=== PATIENT | female | born 1985 | race African-American/Black ===

== ENCOUNTER 2018-05-07 19:36 | Inpatient (IN) ==
[2018-05-07] MEDS: LACTATED RINGERS 1,000 ML IV SCH (20:15)
[2018-05-07] MEDS: MEPERIDINE 50 MG/1 ML VIAL IV PRN (20:20)
[2018-05-07] MEDS: TERBUTALINE 1 MG/1 ML VIAL SUBCUT PRN (21:11)
[2018-05-07] MEDS: BETAMETH SODIUM PHOS/ACETATE 30 MG/5 ML VIAL IM SCH (21:12)
[2018-05-08] MEDS: MEPERIDINE 50 MG/1 ML VIAL IV PRN (08:16)
[2018-05-08] MEDS: ONDANSETRON 4 MG/2 ML VIAL IV PRN (08:22)
[2018-05-08 08:53] LABS: Basophils % 0.1 % (0.0-0.8); Hematocrit 33.2 VOL% (35.7-47.0); Hemoglobin 10.9 GM/DL (12.0-16.0); Immature Granulocytes % 0.5 %; Immature Granulocytes Absolute 0.04 #; Lymphocytes % 11.7 % (21.3-54.2); Mean Corpuscular HGB Conc 32.8 GM/DL (32-36); Mean Corpuscular Hemoglobin 28 PG (27-34); Mean Corpuscular Volume 85.8 FL (87-102); Mean Platelet Volume 9.9 FL (9.6-12.0); Monocytes # 0.3 10*3/uL (0.11-0.8); Monocytes % 3.8 % (1.7-12.7); Neutrophils % 83.9 % (38.7-73.9); Platelet Count 377 T/CUMM (130-400); Red Blood Count 3.87 MC/CUMM (3.8-5.5); Red Cell Distribution Width 13.1 % (9.3-17.3); White Blood Count 8.3 T/CUMM (4-12)
[2018-05-08] MEDS: BETAMETH SODIUM PHOS/ACETATE 30 MG/5 ML VIAL IM SCH (09:15)
[2018-05-08 09:23] LABS: Alanine Aminotransferase 10 U/L (13-56); Albumin 2.5 G/DL (3.4-5.0); Alkaline Phosphatase 150 U/L (45-117); Aspartate Amino Transferase 8 U/L (0-37); Bilirubin,Total < 0.39 MG/DL (0.2-1.0); Blood Urea Nitrogen 6 MG/DL (7-18); Calcium 8.4 MG/DL (8.5-10.1); Glucose 105 MG/DL (74-106); Osmolality,Calculated 270.8 MOS/KG (273-304); Potassium 4.1 MMOL/L (3.5-5.1); Sodium 137 MMOL/L (136-145); Total Protein 6.8 G/DL (6.4-8.3)
[2018-05-08 10:05] LABS: Apearance,Urine CLEAR (Clear); Bacteria,Urine Occasional /HPF (Few); Bilirubin,Urine Negative (Negative); Blood, Urine Negative (Negative); Glucose,Urine (UA) Negative (Negative); Ketones,Urine 20 mg/dL (Negative); Mucus,Urine Occasional /LPF (Occasional); Nitrite,Urine Negative (Negative); Protein,Urine Negative; RBC,Urine <1 /HPF (0-4); Squamous Epithelial Cell,Urine Occasional /HPF (0-10); Urine Color Straw (Yellow); Urine Specific Gravity 1.011 (1.001-1.035); Urine Urobilinogen < 2.0 EU/DL (0.2-1.0)
[2018-05-08] MEDS: TERBUTALINE 1 MG/1 ML VIAL SUBCUT PRN (10:32)
[2018-05-08] MEDS: LACTATED RINGERS 1,000 ML IV SCH ×2 (11:18→16:11)
[2018-05-08] MEDS: NIFEdipine 10 MG CAPSULE PO SCH ×2 (13:12→18:08)
[2018-05-09] MEDS: NIFEdipine 10 MG CAPSULE PO SCH ×5 (01:00→23:18)
[2018-05-09] MEDS: LACTATED RINGERS 1,000 ML IV SCH ×2 (08:10→18:16)
[2018-05-09] MEDS: ONDANSETRON 4 MG/2 ML VIAL IV PRN (08:13)
[2018-05-09] MEDS: MEPERIDINE 50 MG/1 ML VIAL IV PRN (08:13)
[2018-05-09 10:15] LABS: Basophils % 0.1 % (0.0-0.8); Eosinophils % 0.1 % (0.00-10.9); Hemoglobin 9.9 GM/DL (12.0-16.0); Immature Granulocytes % 0.7 %; Immature Granulocytes Absolute 0.06 #; Lymphocytes # 1.5 10*3/uL (1.4-4.0); Lymphocytes % 16.9 % (21.3-54.2); Mean Corpuscular HGB Conc 31.9 GM/DL (32-36); Mean Corpuscular Hemoglobin 28 PG (27-34); Mean Corpuscular Volume 88.1 FL (87-102); Mean Platelet Volume 9.7 FL (9.6-12.0); Monocytes # 0.9 10*3/uL (0.11-0.8); Monocytes % 9.7 % (1.7-12.7); Neutrophils # 6.6 10*3/uL (1.4-7.4); Neutrophils % 72.5 % (38.7-73.9); Platelet Count 360 T/CUMM (130-400); Red Blood Count 3.52 MC/CUMM (3.8-5.5); Red Cell Distribution Width 13.2 % (9.3-17.3)
[2018-05-09 10:32] LABS: INR 0.9; PT Patient Result 9.8 SECS
[2018-05-09 17:43] LABS: Basophils % 0.1 % (0.0-0.8); Eosinophils % 0.3 % (0.00-10.9); Hematocrit 29.2 VOL% (35.7-47.0); Hemoglobin 9.5 GM/DL (12.0-16.0); Immature Granulocytes % 0.8 %; Immature Granulocytes Absolute 0.06 #; Lymphocytes # 1.6 10*3/uL (1.4-4.0); Lymphocytes % 20.7 % (21.3-54.2); Mean Corpuscular HGB Conc 32.5 GM/DL (32-36); Mean Corpuscular Hemoglobin 28 PG (27-34); Mean Corpuscular Volume 86.6 FL (87-102); Monocytes # 0.8 10*3/uL (0.11-0.8); Monocytes % 9.7 % (1.7-12.7); Neutrophils # 5.3 10*3/uL (1.4-7.4); Neutrophils % 68.4 % (38.7-73.9); Platelet Count 348 T/CUMM (130-400); Red Blood Count 3.37 MC/CUMM (3.8-5.5); Red Cell Distribution Width 13.2 % (9.3-17.3); White Blood Count 7.8 T/CUMM (4-12)
[2018-05-09 18:05] LABS: INR 0.9; PT Patient Result 9.7 SECS
[2018-05-10] MEDS: LACTATED RINGERS 1,000 ML IV SCH (03:07)
[2018-05-10] MEDS: BETAMETH SODIUM PHOS/ACETATE 30 MG/5 ML VIAL IM SCH (03:07)
[2018-05-10 03:31] VITALS: BP 94/51
[2018-05-10 04:36] LABS: Basophils % 0.1 % (0.0-0.8); Eosinophils % 0.5 % (0.00-10.9); Hematocrit 29.3 VOL% (35.7-47.0); Hemoglobin 9.3 GM/DL (12.0-16.0); Immature Granulocytes Absolute 0.08 #; Lymphocytes # 2.1 10*3/uL (1.4-4.0); Lymphocytes % 27.5 % (21.3-54.2); Mean Corpuscular HGB Conc 31.7 GM/DL (32-36); Mean Corpuscular Hemoglobin 28 PG (27-34); Mean Corpuscular Volume 87.7 FL (87-102); Mean Platelet Volume 10.3 FL (9.6-12.0); Monocytes # 0.9 10*3/uL (0.11-0.8); Neutrophils # 4.6 10*3/uL (1.4-7.4); Neutrophils % 59.9 % (38.7-73.9); Platelet Count 343 T/CUMM (130-400); Red Blood Count 3.34 MC/CUMM (3.8-5.5); Red Cell Distribution Width 13.3 % (9.3-17.3); White Blood Count 7.7 T/CUMM (4-12)
[2018-05-10 04:43] LABS: INR 0.9; PT Patient Result 9.7 SECS; Partial Thromboplastin Time 27.9 SECS (0-40)
[2018-05-10] MEDS: NIFEdipine 10 MG CAPSULE PO SCH ×2 (05:54→12:05)
[2018-05-10] MEDS ORDERED: ACETAMINOPHEN 325 MG TABLET PO PRN (10:13)
== END 2018-05-10 13:15 | disposition home or self-care (01) ==
LOC: N.LDOUT 19:36 → N.LD 19:36
PROVIDERS: ADMIT Obstetrics & Gynecology; ATTEND Obstetrics & Gynecology